=== PATIENT | female | born 2005 | race Caucasian/White ===

== ENCOUNTER 2024-05-07 16:40 | Emergency (ER) | payer OTHER, SELFPAY ==
[2024-05-07 16:45] VITALS: BP 126/84
--- NOTE | 2024-05-07 17:19 | ED.GENMED ---
History of Present Illness
General
Chief Complaint: Abdominal Pain
Source: patient
Exam Limitations: none
Time Seen by Provider: 05/07/24 16:56
Nursing documentation reviewed up to this point in time: agreed with
History of Present Illness
History of Present Illness:
Patient is a 18 year old female presenting to the emergency department with evaluation of upper abdominal pain. Patient reports a vague upper abdominal 'burning 'for the past 2 days. However�today around 3:30 PM she reports an severe, stabbing
pain in upper abdomen. She also reports some pain in her mid back. This was associated with nausea although no vomiting. No known fever although she has felt 'chilly'. Patient denies any chest pain or shortness of breath. No urinary symptoms.
No constipation or diarrhea. No history of similar symptoms.
Patient states she has not had anything to eat yet today.
Patient does have a significant family history of gallbladder disease including her mother and grandmother who both had cholecystectomies in their 20s
Review of Systems
Review of Systems
Allergies reviewed?: Yes
All Other Systems: ROS reviewed and negative except as documented in HPI and ROS
Phy Exam
Physical Exam
Physical Exam:
Vitals: Patient's vital signs are stable. Afebrile
General: Patient is mildly uncomfortable due to pain, no acute distress
Skin: Warm and dry, no rashes or lesions
Head: Normocephalic, atraumatic
Eyes: Sclera nonicteric. EOMs intact. No nystagmus.
Throat: Protecting airway
Neck: Normal ROM, no cervical spine tenderness, no meningismus
Cardiac: Regular rate and rhythm, no murmurs.
Pulm: Normal respiratory effort, no wheezes, rales, rhonchi heard on exam.
Abdomen: Abdomen soft. Moderate tenderness in epigastric and right upper quadrant. No tenderness at McBurney's point. No CVA tenderness
Extremities: No evidence of cyanosis or edema. Palpable DP pulses
Neuro: AAOx3. Grossly intact.
Psychiatric: Normal affect.
Course
Orders/Labs/Results
Orders:
Orders
05/07/24 17:16
0.9% Sodium Chloride 1000 ml [Nss] 1,000 ml IV BOLUS
Famotidine [Pepcid] 20 mg IV NOW STA
Ketorolac [Toradol] 15 mg IV NOW STA
Ondansetron Injectable [Zofran] 4 mg IV NOW STA
Test Result ONCE
05/07/24 17:17
US Abdomen Complete/Upper Urgent
Comment:
Reason For Exam: upper abdominal pain, +nausea
05/07/24 17:36
Basic Metabolic Panel Urgent
Complete Blood Count/With Diff Urgent
HCG, Serum Qualitative Screen Urgent
Lipase Urgent
05/07/24 19:20
ALT (SGPT) Urgent
AST (SGOT) Urgent
Potassium Urgent
Total Bilirubin Urgent
Abnormal Lab Results
05/07/24
17:36
MCHC 32.8 L g/dL
(33.0-37.0)
05/07/24 17:36
05/07/24 19:20
Vital Signs
Initial and Last Documented VS:
Initial Vital Signs
Temp Pulse Resp BP Pulse Ox
98.3 F 100 20 126/84 100
05/07/24 16:45 05/07/24 16:45 05/07/24 16:45 05/07/24 16:45 05/07/24 16:45
Last Documented Vital Signs
Temp Pulse Resp BP Pulse Ox
98.3 F 82 18 112/59 99
05/07/24 16:45 05/07/24 19:37 05/07/24 19:37 05/07/24 19:37 05/07/24 19:37
MDM/Problems Addressed
Differential Diagnosis Includes:
Not limited to: Biliary colic, acute cholecystitis, choledocholithiasis, gastritis, GERD, etc.
MDM/Problems Addressed:
18 year old female with a few days of upper abdominal discomfort and nausea with acute worsening this afternoon. No fevers, vomiting, or shortness of breath. Significant family hx of gallbladder disease. Vital signs acceptable. Physical exam as
above. Symptoms improved after toradol, pepcid, and zofran. Labs and abdominal US without abnormal findings. No evidence of gallstones. Possible gastritis vs. viral illness. On reassessment - patient will mild discomfort although definitely improved
from arrival. Discussed proceeding with CT scan abdomen although overall low suspicion for intrabdominal infectious process given patient is afebrile with normal laboratory analysis and improvement in symptoms. Utilized shared decision making with
patient. Will plan to discharge home with PPI, zofran. Strict return precautions discussed. Patient comfortable with plan. Case seen w/ attending physician.
Chronic conditions affecting care:
N/A
Acute Exacerbation and/or Progression of Chronic Illness:
N/A
*Radiology
Radiology exam reviewed: radiology read reviewed
*Pulse Oximetry
Patient hypoxic: no
*EKG
Interpreted by ED Provider?: NA
*Corporate Travel Coordinator Interpretation
Rate: Corporate Travel Coordinator- N/A
*Critical Care Note
Total Time (30-74mins, 75-104mins- exclusive of procedures): Not Applicable
ED Attending Note
-
Portions of this chart may have been created with voice recognition software.� Occasional wrong word or��sound alike� substitutions may have occurred due to the inherent limitations of voice recognition software.
Discharge Plan
Departure
Patient Disposition: Home (Routine Discharge)
Date of Disposition: 05/07/24
Time of Disposition: 20:31
Patient with high blood pressure during this ER visit?: No
Condition: Good
Covid-19: Not Applicable
Discharge Problem:
Acute upper abdominal pain
Instructions: Abdominal pain in adults - ED discharge instructions, BLOOD PRESSURE
Prescriptions:
New
ondansetron 4 mg tablet,disintegrating
4 mg PO Q8H PRN (Reason: nausea and vomiting) Qty: 7 0RF
Referrals:
Erasmo Hawkins MD [Family Provider] -
Renzo Ibrahim MD [Active] - As needed
Activity Restrictions/Additional Instructions:
Return to the emergency department with any high fevers, severe abdominal pain, intractable nausea/vomiting, worsening in current symptoms, or any other concerns
-As discussed�your lab work and ultrasound showed no abnormalities today in the emergency department.
-You should take OTC Pepcid and omeprazole daily for the next few days and then transition to omeprazole daily to help ease symptoms. Take Motrin and/or Tylenol as needed for pain.
-Stay well-hydrated.
-Follow-up with your primary care provider in a few days to ensure symptoms are improving/for further evaluation. Contact information for general surgeon has been provided if you need this going forward.
Monitor your symptoms closely and return to the emergency department with any acute worsening/new symptoms or any other concerns
Interventions
Interventions:
*Risk Screen - Suicide Last Done: 05/07/24 17:26
*General Assessment Last Done: 05/07/24 17:26
*Neglect/Abuse Screening Last Done: 05/07/24 17:26
*ED- Fall Risk Assessment Last Done: 05/07/24 17:26
*ED COVID-19 Vaccine History Last Done: 05/07/24 17:26
*Nursing Disposition Last Done: 05/07/24 21:10
EL-Vdvgxo-Qcioutzqcz Assessment Last Done: 05/07/24 17:44
Discharge Date and Time
Discharge Date/Time: 05/07/24 21:11
Print Language: [id number]
[2024-05-07 17:27] VITALS: BMI 26.6
[2024-05-07] MEDS: NSS 1000 IV (17:40)
[2024-05-07] MEDS: TORADOL 15 MG IV (17:42)
[2024-05-07] MEDS: ZOFRAN 4 MG IV (17:43)
[2024-05-07 17:44] LABS: % Basophils 0.3 % (0-2); % Eosinophils 0.3 % (0-6); % Immature Granulocytes 0.4 % (0-0.5); % Lymphocytes 21.1 % (20.5-51.1); % Monocytes 7.8 % (1.7-9.3); % Neutrophils 70.1 % (42.2-75.2); Absolute Lymphocytes 1.5 10^3/uL (1.2-3.4); Absolute Monocytes 0.6 10^3/uL (0.1-0.6); Absolute Neutrophils 4.9 10^3/uL (1.4-6.5); Hematocrit 40.9 % (37.0-47.0); Hemoglobin 13.4 g/dL (12.0-16.0); Mean Corp Hgb Conc. 32.8 g/dL (33.0-37.0); Mean Corpuscular Hgb 28.3 pg (27.0-31.0); Mean Corpuscular Volume 86.3 fL (81.0-99.0); Mean Platelet Volume 9.6 fL (7.4-10.4); Nucleated Red Blood Cells % 0 %; Platelet Count 190 10^3/uL (130-400); Red Blood Cell Count 4.74 10^6/uL (4.20-5.40); Red Cell Dist. Width 12.6 % (11.5-14.5); White Blood Cell Count 7.1 10^3/uL (4.8-10.8)
[2024-05-07 17:48] VITALS: BP 117/74
[2024-05-07] MEDS: PEPCID 20 MG IV (17:50)
[2024-05-07 18:01] LABS: HCG, Serum Qualitative Screen Negative
[2024-05-07 18:10] LABS: Blood Urea Nitrogen 12 mg/dl (7-17); Calcium 9.6 mg/dl (8.4-10.2); Carbon Dioxide 25 mmol/L (22-30); Chloride 102 mmol/L (98-107); Estimated Creatinine Clearance > 125 ml/min; Glucose 91 mg/dl (70-99); Lipase 73 U/L (23-300); Sodium 136 mmol/L (135-145); eGFR > 60.00
[2024-05-07 19:37] VITALS: BP 112/59
[2024-05-07 19:40] LABS: ALT (SGPT) 11 U/L (0-35); AST (SGOT) 16 U/L (14-36); Potassium 3.8 mmol/L (3.5-5.1); Total Bilirubin 0.6 mg/dl (0.2-1.3)
== END 2024-05-07 21:11 | disposition home or self-care (01) ==
LOC: EMR 16:40
PROVIDERS: Physician Assistant; EMERGENCY PHYSICIAN Emergency Medicine; FAMILY PHYSICIAN Pediatrics
DX: R10.10 Upper abdominal pain, unspecified (principal); Z83.79 Family history of other diseases of the digestive system
CPT/HCPCS: 99284; 96374; 96375; 96361; 76700; 80048; 82247; 83690; 84132; 84450; 84460; 84703; 85025